=== PATIENT | female | born 1950 | race Caucasian/White ===

== ENCOUNTER → 2024-04-20 | Outpatient (CLI) | payer MEDICARE, OTHER, SELFPAY ==
--- NOTE | 2024-04-20 08:53 | BI_ITS ---
MAMMOGRAPHY - BILATERAL SCREENING REASON FOR EXAM: Female, 73 years old. Routine annual screening examination. PERTINENT HISTORY: Aunt with breast cancer. TECHNIQUE: Digital bilateral breast carter (3D mammographic acquisition) in the CC and MLO projections. 2-D mediolateral oblique (MLO) and craniocaudad (CC) views of both breasts were obtained. CAD: Full Field Digital Mammography with Computer Added Detection was performed. COMPARISON: Comparison is made with prior study April 08, 2017. FINDINGS: Breast Composition: The breasts are extremely dense, which lowers the sensitivity of mammography. There are no dominant masses or suspicious calcifications. No other significant abnormalities are identified. There has been no significant change since the prior study. BI/SCRN MAMM (CAD)W/CARETR BILAT IMPRESSION: Stable bilateral screening mammogram. Yearly follow-up mammogram recommended. (A) ASSESSMENT CATEGORY: BIRADS Category 1: Negative. A letter regarding these results will be sent to the patient by the facility within 30 days. Approximately 10% of breast cancers are not detected by mammography. A normal mammogram should not delay biopsy of a clinically suspicious abnormality. [id number] Electronically Signed: Richard Cabrera MD at 9:30 EDT ,
[2024-04-26 13:01] LABS: HPV Reflexed? NOT INDICATED
== END | disposition home or self-care (01) ==
PROVIDERS: PCP Family Medicine; Referring Provider Advanced Practice Midwife; Visit Provider Advanced Practice Midwife
DX: Z12.31 Encounter for screening mammogram for malignant neoplasm of breast (principal); Z12.4 Encounter for screening for malignant neoplasm of cervix; N95.0 Postmenopausal bleeding
CPT/HCPCS: 77063; 77067; 88175; G0145

== ENCOUNTER → 2024-04-30 | Outpatient (CLI) | payer MEDICARE, OTHER, SELFPAY ==
--- NOTE | 2024-04-30 11:09 | US_ITS ---
HISTORY: PMB. TECHNIQUE: Transvaginal pelvic ultrasound was performed with rios scale and color Doppler evaluation. 47 images. COMPARISON: None. FINDINGS: UTERUS: 5.1 x 3.8 x 2.1 cm. Retroverted. Heterogeneous echotexture with small calcifications. Nabothian cysts in the cervix. ENDOMETRIAL THICKNESS: 3 mm with mild fluid in the endometrial cavity. RIGHT OVARY: 1.5 x 1.7 x 2.5 cm. 1.5 cm simple cyst. LEFT OVARY: Not visualized. FREE FLUID: None. US/Transvaginal Non- IMPRESSION: Mild fluid, likely hemorrhage, in the endometrial cavity without thickening of the endometrial complex. Small right ovarian cyst. Nonvisualization of the left ovary. Electronically Signed: Areli Gama MD at 8:41 EDT ,
--- OUTSIDE RECORDS SUMMARY | 2024-04-30 13:00 | XMS RPT_ITS | CCD ---
Author Organization [facility] Inform ion Partnership [facility] Care Team Providers Care Medical Transcription Radiology Name Role Phone Delmy MESSENGER COPY, Ivana Sloan Unavailable LYDIA Willard RN, NOHEMY Tabares MD Attending HELIO Beth Consulting NOHEMY Larsen MD Admitting NOHEMY Mercer MD Primary Care Unavailshoshana christopher PROVIDER, UNKNOWN Consulting Unavailable PROVIDER, UNKNOWN Consulting Unavailable PROVIDER, UNKNOWN Consulting Unavailable Medications Completed/Discontinued Medications Medication Drug Class(es) Dates Sig (Normalized) Sig (Original) estradiol 0.1 mg/ml vaginal cream (4 sources) Estrogen Start: 04-06-2017 End: 04-11-2017 ESTRACE 0.1 MG/GM CREA use as directed ESTRADIOL [id number] Ivana Brock MESSENGER COPY estrogens, conjugated (jail) 0.625 mg/ml vaginal cream (1 source) Estrogen Start: 04-11-2017 PREMARIN 0.625 MG/GM CREA 1 angel per vagina 2 nights per week X 4 week then small amount at opening 2 nights per week ESTROGENS, CONJUGATED [id number] Ivana Brock MESSENGER COPY lisinopril 20 mg oral tablet (6 sources) Angiotensin Converting Enzyme Inhibitor Start: 03-28-2017 LISINOPRIL 20 MG TABS LISINOPRIL [id number] Ivana Brock MESSENGER COPY metoprolol tartrate 25 mg oral tablet (6 sources) beta-Adrenergic Vivienne Start: 03-28-2017 METOPROLOL TARTRATE 25 MG TABS bid METOPROLOL TARTRATE [id number] Ivana Brock MESSENGER COPY Problems Problem Classification Problem Date Documented Date Episodic/Chronic Menopausal disorders (6 sources) Atrophic vaginitis; Translations: [Postmenopausal atrophic vaginitis] Onset: 03-28-2017 03-28-2017 Chronic Unclassified (3 sources) Cervical smear biopsy taken ; Translations: [Encounter for screening for malignant neoplasm of cervix] Onset: 03-28-2017 03-28-2017 Unclassified (3 sources) Screening mammography ; Translations: [Encounter for screening mammogram for malignant neoplasm of breast] Onset: 03-28-2017 03-28-2017 Unclassified (3 sources) Gynecologic examination ; Translations: [Encounter for gynecological examination (general) (routine) without abnormal findings] Onset: 03-28-2017 03-28-2017 Results Test Name Value Interpretation Reference Range Facility CBC + DIFFon 03-22-2024 Baso # 0.01 x10EE3/UL Normal 0.00 - 0.10 [facility] Comment on above: Performed By: #### 2 [id number] #### [facility],[address] [place] [address] 24432 Basophils/100 WBC (Bld) 0.3 % Normal 0.0 - 2.0 [facility] Comment on above: Performed By: #### 2 52032 #### [facility],[address] [place] [address] CBC + DIFF Normal [facility] Comment on above: Result Comment: CBC- COMPLETE BLOOD COUNT Performed By: #### 2 55916 #### [facility],[address] [place] [address] 78825 EO # 0.16 x10EE3/UL Normal 0.00 - 0.50 [facility] Comment on above: Performed By: #### 2 71620 #### [facility],[address] [place] [address] 15313 Eosinophils/100 WBC (Bld) 3.9 % Normal 0.0 - 7.0 [facility] Comment on above: Performed By: #### 2 41827 #### [facility],[address] [place] [address] 59010 Erythrocyte distribution width (RBC) [Ratio] 13.0 % Normal 12.0 - 15.6 [facility] Comment on above: Performed By: #### 2 40901 #### [facility],[address] [place] [address] Hematocrit (Bld) [Volume fraction] 37.1 % Normal 34.0 - 46.0 [facility] Comment on above: Performed By: #### 2 92425 #### [facility],[address] [place] [address] Hemoglobin (Bld) [Mass/Vol] 12.7 g/dL Normal 12.0 - 16.0 [facility] Comment on above: Performed By: #### 2 63017 #### [facility],[address] [place] [address] Lymph # 1.61 x10EE3/UL Normal 0.80 - 2.80 [facility] Comment on above: Performed By: #### 2 97690 #### [facility],[address] [place] [address] Lymphocytes/100 WBC (Bld) 37.9 % Normal 20.0 - 45.0 [facility] Comment on above: Performed By: #### 2 39087 #### [facility],[address] [place], [place] [id number] MANUAL DIFF N/A Normal [facility] Comment on above: Performed By: #### 2 30690 #### [facility],[address] [place], [place] [address] MCH (RBC) [Entitic mass] 31 pg Normal 27 - 33 [facility] Comment on above: Performed By: #### 2 97290 #### [place] [id number] MCHC 34 X10 3 Normal 32 - 36 [facility] Comment on above: Performed By: #### 2 28168 #### [place] [phone] MCV (RBC) [Entitic vol] 90 fL Normal 80 - 99 [facility] Comment on above: Performed By: #### 2 19143 #### [facility],[address] [place] [address] 41172 Atlantic # 0.33 x10EE3/UL Normal 0.20 - 1.00 [facility] Comment on above: Performed By: #### 2 98891 #### [facility],[address] [place] [address] 92674 MONOS % 7.7 % Normal 0.0 - 10.0 [facility] Comment on above: Performed By: #### 2 80195 #### [facility],[address] [place] [address] Morphology Fuad (Bld) [Interp] N/A Normal [facility] Comment on above: Performed By: #### 2 61646 #### [facility],[address] [place] [address] Neut # 2.13 x10EE3/UL Normal 1.50 - 7.10 [facility] Comment on above: Performed By: #### 2 91441 #### [facility],[address] [place] [address] Neutrophils/100 WBC (Bld) 50.2 % Normal 46.0 - 76.0 [facility] Comment on above: Performed By: #### 2 47144 #### [facility],[address] [place] [address] PLATELET 316 x10EE3/UL Normal 150 - 450 [facility] Comment on above: Performed By: #### 2 49879 #### [facility],[address] [place] [address] Platelet mean volume (Bld) [Entitic vol] 6.9 fL Normal 6.6 - 10.5 [facility] Comment on above: Result Comment: AUTO MATED DIFFERENTIAL Performed By: #### 2 85683 #### [facility],[address],[place] [address] RBC 4.11 x 10EE6/UL Normal 4.10 - 5.30 [facility] Comment on above: Performed By: #### 2 10111 #### [facility],[address] [place] [address] 14669 WBC 4.2 x 10EE3/UL Low 4.5 - 10.8 [facility] Comment on above: Performed By: #### 2 97506 #### [facility],[address] [place] [address] 38431 CMP with eGFRon 03-22-2024 AGE 73 years Normal [facility] Comment on above: Performed By: #### 2 30573 #### [facility],[address] [place] [address] 63992 Albumin [Mass/Vol] 3.6 g/dL Normal 3.4 - 5.0 [facility] Comment on above: Performed By: #### 2 92897 #### [facility],[address] [place] [address] 52282 Albumin/Globulin [Mass ratio] 1.0 {ratio} Normal 0.9 - 1.6 [facility] Comment on above: Performed By: #### 2 33485 #### [facility],[address] [place] [address] 32196 ALK PHOS 69 U/L Normal 46 - 116 [facility] Comment on above: Performed By: #### 2 31106 #### [facility],[address] [place] [address] 27288 ALT [Catalytic activity/Vol] 29 U/L Normal 16 - 63 [facility] Comment on above: Performed By: #### 2 44252 #### [facility],[address] [place] [address] 41074 Anion gap [Moles/Vol] 10 mmol/L Normal 10 - 20 [facility] Comment on above: Performed By: #### 2 50118 #### [facility],[address] [place] [address] 09612 AST [Catalytic activity/Vol] 28 U/L Normal 13 - 39 [facility] Comment on above: Performed By: #### 2 82368 #### [facility],[address] [place] [address] 45685 B/C RATIO 20 ratio Normal 0 - 30 [facility] Comment on above: Performed By: #### 2 40030 #### [facility],[address] [place] [address] 20620 Bilirubin [Mass/Vol] 0.7 mg/dL Normal 0.2 - 1.0 [facility] Comment on above: Performed By: #### 2 94419 #### [facility],[address] [place] [address] 41034 Calcium [Mass/Vol] 9.0 mg/dL Normal 8.5 - 10.1 [facility] Comment on above: Performed By: #### 2 17279 #### [facility],[address] [place] [address] 00451 Chloride [Moles/Vol] 103 mmol/L Normal 98 - 107 [facility] Comment on above: Performed By: #### 2 85061 #### [facility],[address] [place] [address] 52315 CMP with eGFR Normal [facility] Comment on above: Result Comment: COMP REHENSIVE METABOLIC PANEL Performed By: #### 2 18813 #### [facility],[address] [place] [address] 58146 CO2 [Moles/Vol] 30.8 mmol/L Normal 21.0 - 32.0 [facility] Comment on above: Performed By: #### 2 11088 #### [facility],[address] [place] [address] 36100 Creatinine [Mass/Vol] 0.74 mg/dL Normal 0.55 - 1.02 [facility] Comment on above: Performed By: #### 2 37455 #### [facility],[address] [place] [address] 63923 GFR/1.73 sq M.predicted among non-blacks MDRD (S/P/Bld) [Vol rate/Area] mL/min/{1.73_m2} Normal 60 - 999 [facility] Comment on above: Performed By: #### 2 17163 #### [facility],[address] [place], [place] [address] Result Comment: ACCO RDING TO THE NATIONAL KIDNEY DISEASE EDUCATION PROGRAM(NKDE), A NORMAL eGFR IS A VALUE GREATER THAN OR EQUAL TO 60 ML/MIN/1.73 SQ METERS. CHRONIC KIDNEY DISEASE: <60mL/MIN/1.73 SQ METERS KIDNEY FAILURE: <15mL/MIN/1.73 SQ METERS THIS TEST SHOULD ONLY BE USED FOR PATIENTS 18 YEARS OF AGE AND OLDER. Globulin (S) [Mass/Vol] 3.7 g/dL Normal 1.5 - 3.8 [facility] Comment on above: Performed By: #### 2 33060 #### [facility],[address] [place] [address] 17946 Glucose [Mass/Vol] 107 mg/dL High 74 - 106 [facility] Comment on above: Performed By: #### 2 79297 #### [facility],[address] [place] [address] 52965 Potassium [Moles/Vol] 3.5 mmol/L Normal 3.5 - 5.1 [facility] Comment on above: Performed By: #### 2 07993 #### [facility],[address] [place] [address] 38615 Protein [Mass/Vol] 7.3 g/dL Normal 6.4 - 8.2 [facility] Comment on above: Performed By: #### 2 36328 #### [facility],[address] [place] [address] 67206 Sodium [Moles/Vol] 140 mmol/L Normal 136 - 145 [facility] Comment on above: Performed By: #### 2 36617 #### [facility],[address] [place] [address] 18887 Urea nitrogen [Mass/Vol] 15 mg/dL Normal 7 - 18 [facility] Comment on above: Performed By: #### 2 29543 #### [facility],[address] [place] [address] 10189 HEMOGLOBIN A1C (POM)on 03-22 Glucose [Mass/Vol] 134.1 mg/dL High 0.0 - 0.0 [facility] Comment on above: Result Comment: Do HEMOGLOBIN A1C REFERENCE RANGESBLDo Suggested Diagnosis HbA1c(%) HbA1C (mmol/mol Diabetic >/=6.5 >/=48 Prediabetes 5.7 - 6.4 39 - 47 Normal <5.7 <39 Performed By: #### 2 29098 #### [facility],[address] [place] [address] 60160 HbA1c (Bld) [Mass fraction] 6.3 % Normal 0.0 - 6.5 [facility] Comment on above: Performed By: #### 2 22341 #### [facility],[address] [place] [address] 91691 LIPID PROFILEon 03-22-2024 Cholesterol [Mass/Vol] 179 mg/dL Normal 0 - 240 [facility] Comment on above: Performed By: #### 2 54104 #### [facility],[address] [place] [address] 45623 Cholesterol in HDL [Mass/Vol] 82 mg/dL High 40 - 60 [facility] Comment on above: Performed By: #### 2 90599 #### [facility],[address] [place] [address] 12135 Cholesterol in LDL [Mass/Vol] 85 mg/dL Normal 0 - 129 [facility] Comment on above: Performed By: #### 2 67076 #### [facility],[address] [place] [address] 31654 Cholesterol.total/ Cholesterol in HDL [Mass ratio] 2.2 {ratio} Normal 0.0 - 5.0 [facility] Comment on above: Performed By: #### 2 79628 #### [facility],[address] [place] [address] 66566 Lipid 1996 panel Normal [facility] Comment on above: Result Comment: LIPI D PROFILE Performed By: #### 2 55353 #### [facility],[address] [place] [address] 24678 Triglyceride [Mass/Vol] 58 mg/dL Normal 0 - 150 [facility] Comment on above: Performed By: #### 2 91924 #### [facility],[address] [place] [address] 09339 .GFRon 02-20-2021 GFR >60 Normal [facility] ([place]) Comment on above: Result Comment: GFR Population mean for , Non- Americans Ages 20-29 = 116 mL/min/1.73 sq.m. Ages 30-39 = 107 mL/min/1.73 sq.m. Ages 40-49 = 99 mL/min/1.73 sq.m. Ages 50-59 = 93 mL/min/1.73 sq.m. Ages 60-69 = 85 mL/min/1.73 sq.m. Ages 70+ = 75 mL/min/1.73 sq.m. Chronic Kidney Disease: Less than 60 mL/min/1.73 square meters End Stage Renal Disease: Less than 15 mL/min/1.73 square meters Performed By: #### B MP, GFR, LIPID #### [place] [address] GFR Non- 51 ml/min/1.73sqm Normal [facility] ([place]) Comment on above: Result Comment: GFR Population mean for , Non- Americans Ages 20-29 = 116 mL/min/1.73 sq.m. Ages 30-39 = 107 mL/min/1.73 sq.m. Ages 40-49 = 99 mL/min/1.73 sq.m. Ages 50-59 = 93 mL/min/1.73 sq.m. Ages 60-69 = 85 mL/min/1.73 sq.m. Ages 70+ = 75 mL/min/1.73 sq.m. Chronic Kidney Disease: Less than 60 mL/min/1.73 square meters End Stage Renal Disease: Less than 15 mL/min/1.73 square meters Performed By: #### B MP, GFR, LIPID #### [address] [address] BMPon 02-20-2021 BUN/Creatinine Ratio 17.9 ratio Normal 10.0-22.0 [facility] ([place]) Comment on above: Performed By: #### B MP, GFR, LIPID #### [address] [address] Calcium [Mass/Vol] 9.1 mg/dL Normal 8.7-10.4 [facility] ([place]) Comment on above: Result Comment: No te - New Reference Range in effect 20 Performed By: #### B MP, GFR, LIPID #### [address] [address] Chloride [Moles/Vol] 106 mmol/L Normal 98-110 [facility] ([place]) Comment on above: Performed By: #### B MP, GFR, LIPID #### [place] [id number] CO2 [Moles/Vol] 30 mmol/L Normal 22-32 [facility] ([place]) Comment on above: Performed By: #### B MP, GFR, LIPID #### [address] [address] Creatinine [Mass/Vol] 1.06 mg/dL Normal 0.50-1.20 [facility] ([place]) Comment on above: Performed By: #### B MP, GFR, LIPID #### [place] [id number] Electrolyte Balance 4.0 mEq/L Normal 4.0-15.0 [facility] ([place]) Comment on above: Performed By: #### B MP, GFR, LIPID #### [address] [address] Glucose [Mass/Vol] 104 mg/dL Normal 82-115 [facility] ([place]) Comment on above: Performed By: #### B MP, GFR, LIPID #### [address] [address] Potassium [Moles/Vol] 4.4 mmol/L Normal 3.5-5.0 [facility] ([place]) Comment on above: Performed By: #### B MP, GFR, LIPID #### [address] [address] Sodium [Moles/Vol] 140 mmol/L Normal 136-145 [facility] ([place]) Comment on above: Performed By: #### B MP, GFR, LIPID #### [address] [address] Urea nitrogen [Mass/Vol] 19.0 mg/dL Normal 8.0-22.0 [facility] ([place]) Comment on above: Performed By: #### B MP, GFR, LIPID #### [address] [address] LIPIDon 02-20-2021 Cholesterol [Mass/Vol] 171 mg/dL Normal 50-199 [facility] ([place]) Comment on above: Result Comment: Chol esterol Reference Interval: Less than 200 Desirable 200-239 Borderline high risk 240 and above High risk Performed By: #### B MP, GFR, LIPID #### [address] [address] Cholesterol in HDL [Mass/Vol] 65 mg/dL High 40-59 [facility] ([place]) Comment on above: Performed By: #### B MP, GFR, LIPID #### [address] [address] Cholesterol in LDL [Mass/Vol] 91 mg/dL Normal 0-129 [facility] ([place]) Comment on above: Performed By: #### B MP, GFR, LIPID #### [address] [address] Triglyceride [Mass/Vol] 74 mg/dL Normal 3-149 [facility] ([place]) Comment on above: Performed By: #### B MP, GFR, LIPID #### [address] [address] Coronavirus 2019on 0 COVID 19 Source MESSENGER COPY Normal [facility] Comment on above: Result Comment: BEATRICE Busch alled to and read back by: Bryan [facility] 03/23/2020 0627 [place] COVID 19 Result MESSENGER COPY Abnormal Negative for COVID19 (SARS CoV2) by PCR. [facility] Comment on above: Result Comment: Posi tive for If your test results are positive , you have tested positive for the presence of the virus associated with COVID-19. This is a stressful time and if you are a [facility] patient, we will support you by closely monitoring your symptoms and providing supportive resources that can ease your recovery. Our team will call you regularly and have you enter your symptoms in MyChart, so that we can provide the best care possible. This test was developed and its performance characteristics determined by [facility]'s [facility] [place]. This test has been authorized by FDA under an Emergency Use Authorization (EUA). This test has been validated in accordance with the FDA's Guidance Document Policy for Diagnostics Testing in Laboratories Certified to Perform High Complexity Testing under CLIA prior to Emergency use Authorization for Coronavirus Disease 2019 during the Public Health Emergency issued on September 01, 2019. COVID19 (SARS If your test results are positive , you have tested positive for the presence of the virus associated with COVID-19. This is a stressful time and if you are a [facility] patient, we will support you by closely monitoring your symptoms and providing supportive resources that can ease your recovery. Our team will call you regularly and have you enter your symptoms in MyChart, so that we can provide the best care possible. This test was developed and its performance characteristics determined by [facility] [place]. This test has been authorized by FDA under an Emergency Use Authorization (EUA). This test has been validated in accordance with the FDA's Guidance Document Policy for Diagnostics Testing in Laboratories Certified to Perform High Complexity Testing under CLIA prior to Emergency use Authorization for Coronavirus Disease 2019 during the Public Health Emergency issued on September 01, 2019. CoV2) by If your test results are positive , you have tested positive for the presence of the virus associated with COVID-19. This is a stressful time and if you are a [facility] patient, we will support you by closely monitoring your symptoms and providing supportive resources that can ease your recovery. Our team will call you regularly and have you enter your symptoms in MyChart, so that we can provide the best care possible. This test was developed and its performance characteristics determined by [facility] [place]. This test has been authorized by FDA under an Emergency Use Authorization (EUA). This test has been validated in accordance with the FDA's Guidance Document Policy for Diagnostics Testing in Laboratories Certified to Perform High Complexity Testing under CLIA prior to Emergency use Authorization for Coronavirus Disease 2019 during the Public Health Emergency issued on September 01, 2019. PCR.(*) If your test results are positive , you have tested positive for the presence of the virus associated with COVID-19. This is a stressful time and if you are a [facility] patient, we will support you by closely monitoring your symptoms and providing supportive resources that can ease your recovery. Our team will call you regularly and have you enter your symptoms in MyChart, so that we can provide the best care possible. This test was developed and its performance characteristics determined by [facility] [place]. This test has been authorized by FDA under an Emergency Use Authorization (EUA). This test has been validated in accordance with the FDA's Guidance Document Policy for Diagnostics Testing in Laboratories Certified to Perform High Complexity Testing under CLIA prior to Emergency use Authorization for Coronavirus Disease 2019 during the Public Health Emergency issued on September 01, 2019. .GFRon 03-17-2019 GFR >60 Normal [facility] ([place]) Comment on above: Result Comment: GFR Population mean for , Non- Americans Ages 20-29 = 116 mL/min/1.73 sq.m. Ages 30-39 = 107 mL/min/1.73 sq.m. Ages 40-49 = 99 mL/min/1.73 sq.m. Ages 50-59 = 93 mL/min/1.73 sq.m. Ages 60-69 = 85 mL/min/1.73 sq.m. Ages 70+ = 75 mL/min/1.73 sq.m. Chronic Kidney Disease: Less than 60 mL/min/1.73 square meters End Stage Renal Disease: Less than 15 mL/min/1.73 square meters Performed By: #### B MP, GFR #### [address] [address] GFR Non- >60 Normal [facility] ([place]) Comment on above: Result Comment: GFR Population mean for , Non- Americans Ages 20-29 = 116 mL/min/1.73 sq.m. Ages 30-39 = 107 mL/min/1.73 sq.m. Ages 40-49 = 99 mL/min/1.73 sq.m. Ages 50-59 = 93 mL/min/1.73 sq.m. Ages 60-69 = 85 mL/min/1.73 sq.m. Ages 70+ = 75 mL/min/1.73 sq.m. Chronic Kidney Disease: Less than 60 mL/min/1.73 square meters End Stage Renal Disease: Less than 15 mL/min/1.73 square meters Performed By: #### B MP, GFR #### [address] [address] [facility] 03-17-2019 Creatinine [Mass/Vol] 0.62 mg/dL Normal 0.50-1.20 [facility] ([place]) Comment on above: Performed By: #### B MP, GFR #### [address] [address] Glucose [Mass/Vol] 113 mg/dL Normal 82-115 [facility] ([place]) Comment on above: Performed By: #### B MP, GFR #### [address] [address] Urea nitrogen/Creatinin e [Mass ratio] 24.2 ratio High 10.0-22.0 [facility] ([place]) Comment on above: Performed By: #### B MP, GFR #### [address] [address] Calcium [Mass/Vol] 8.7 mg/dL Normal 8.4-10.1 [facility] ([place]) Comment on above: Performed By: #### B MP, GFR #### [address] [address] Chloride [Moles/Vol] 105 mmol/L Normal 98-110 [facility] ([place]) Comment on above: Performed By: #### B MP, GFR #### [address] [address] CO2 [Moles/Vol] 28 mmol/L Normal 22-32 [facility] ([place]) Comment on above: Performed By: #### B MP, GFR #### [address] [address] Electrolyte Balance 8.0 mEq/L Normal 4.0-15.0 [facility] ([place]) Comment on above: Performed By: #### B MP, GFR #### [address] [address] Potassium [Moles/Vol] 3.8 mmol/L Normal 3.5-5.0 [facility] ([place]) Comment on above: Performed By: #### B MP, GFR #### [address] [address] Sodium [Moles/Vol] 141 mmol/L Normal 136-145 [facility] ([place]) Comment on above: Performed By: #### B MP, GFR #### [address] [address] Urea nitrogen [Mass/Vol] 15.0 mg/dL Normal 8.0-22.0 [facility] ([place]) Comment on above: Performed By: #### B MP, GFR #### [address] [address] Replaced Document: (P) PAP I -G w/rfx hrHPVon 04-02-2017 GE use only - for Link[employer] import when terms are not otherwise specified Comment Invalid Interpretation Code . [facility] HPV RFLX Comment Invalid Interpretation Code . [facility] Work Phone: Office Visit: [facility] annualon 0 03-28-2017 Documentation of current medications (procedure) Done Invalid Interpretation Code [facility] Fall risk assessment No Invalid Interpretation Code [facility] Tobacco smoking status NHIS Never Invalid Interpretation Code [facility] Tobacco smoking status NHIS Never smoker Invalid Interpretation Code [facility] Tobacco use CPHS Never smoker Invalid Interpretation Code [facility] Vital Signs Date Time Vital Sign Value Performing Clinician Facility 03-28-2017 10:41-0400 BMI (Body Mass Index) 20.79 kg/m2 Ivana Brock NP [facility] 03-28-2017 10:41-0400 Body Temperature 95.6 [degF] Ivana Brock MESSENGER COPY [facility] 03-28-2017 10:41-0400 Body Temperature 95.59 [degF] Ivana Brock MESSENGER COPY [facility] 03-28-2017 10:41-0400 BP Diastolic 80 mm[Hg] Ivana Brock NP [facility] men[facility] 03-28-2017 10:41-0400 BP Systolic 152 mm[Hg] Ivana Brock MESSENGER COPY [facility] mens [facility] 03-28-2017 10:41-0400 Height 167.64 cm Ivana Brock NP [facility] 03-28-2017 10:41-0400 Pulse (Heart Rate) 60 /min Ivana Brock NP [facility] 03-28-2017 10:41-0400 Respiratory Rate 16 /min Ivana Brock NP [facility] 03-28-2017 10:41-0400 Weight 58.42 kg Ivana Brock NP [facility] Encounters Encounter Date Encounter Type Care Provider Facility Start: 03-22-2024 End: 03-22-2024 ambulatory NOHEMY BELL [facility] Procedures Date Procedure Procedure Detail Performing Clinician Start: 03-28-2017 Cervical smear biopsy taken Pap smear Ivana Brock NP Start: 03-28-2017 Gynecologic examination Routine gynecological examination Ivana Brock NP Start: 03-28-2017 Screening mammography Mammogram yearly screening Ivana Brock NP Start: 03-28-2017 End: 03-28-2017 Documentation of current medications Ivana Brock NP Plan of Treatment Date Care Activity Detail Author Start: 03-28-2017 End: 03-28-2017 Mammogram, screening Mammogram, Screening, both breasts [facility] Work Phone: Start: 03-28-2017 End: 03-28-2017 Appointment Appointment [facility] Start: 03-28-2017 End: 03-28-2017 Mammogram, screening Mammogram, Screening, both breasts [facility] Payers Date Payer Category Payer Unknown [id number] Medicare [id number] Unknown Summary Purpose Family History No Family History Records FoundNo Family History Records FoundNo Family History Records FoundNo Family History Records Found Advance Directives No Advanced Directives Records FoundNo Advanced Directives Records FoundNo Advanced Directives Records FoundNo Advanced Directives Records Found Additional Source Comments INFORMATION SOURCE (unrecogn ized section and content) DATE CREATED AUTHOR 03/21/[address] [facility] ([place]) DATE CREATED AUTHOR AUTHOR'S ORGANIZ ATION 03/23/2020 [facility] DATE CREATED AUTHOR AUTHOR'S ORGANIZ ATION 03/06/[address] [facility] ([place]) DATE CREATED AUTHOR AUTHOR'S ORGANIZ ATION 03/24/2024 [facility] FOR RECORDS PERTAINING TO PATIENTS WHO ARE OR HAVE BEEN ENROLLED IN A CHEMICAL DEPENDENCY/SUBSTANCEABUSE PROGRAM, SOME INFORMATION MAY BE OMITTED. This clinical summary was aggregated from multiple sources. Caution should be exercised in using it in the provision of clinical care. This summary normalizes information from multiple sources, and as a consequence, information in this document may materially change the coding, format and clinical context of patient data. In addition, data may be omitted in some cases. CLINICAL DECISIONS SHOULD BE BASED ON THE PRIMARY CLINICAL RECORDS. [employer] [facility]. provides no warranty or guarantee of the accuracy or completeness of information in this document.
--- NOTE | 2024-04-30 15:30 | EMB_PTH ---
PATHOLOGY RESULTS PATIENT: LILY ADAMES LOC: U#:[id number] AGE/SX: 73/F ROOM: RE04/30/[address]: Casie Reynoso CNM : 1950 BED: DIS: 04/30/2024 SPEC #: [id number] RECD: 04/30/24 17:11 STATUS: MICA REFlaca #: [id number] SONIYA: 04/30/24 15:[address]: Casie Reynoso DEPT: SURGICAL PATHOLOGY RECD BY: Addie Morris ENTERED: 05/01/24 09:59 SP TYPE: ENDOM BX/C SANJIV DR: Dr. Chepe Hernández MD Tissues: Endometrium, NOS Procedures: Surgery Specimen Level IV HEADER OPERATION: Endometrial biopsy PRE-OP DIAGNOSIS: Post menopausal bleeding TISSUE SUBMITTED: Endometrial tissue MICROSCOPIC DIAGNOSIS Endometrial biopsy: Fragments of benign endometrial epithelium, consistent with atrophic endometrium. Fragments of benign ectocervical and endocervical epithelium. SJ.mr 05/02/2024 MICROSCOPIC DESCRIPTION Slides are reviewed. GROSS DESCRIPTION Received is one container labeled with the patient's name and not further designated. The specimen consists of a scant amount of soft tissue. The specimen is totally submitted for cell block preparation. 05/01/2024 TC:4 CPT:47099
== END | disposition home or self-care (01) ==
LOC: US 11:07
PROVIDERS: PCP Family Medicine; Referring Provider Advanced Practice Midwife; Visit Provider Advanced Practice Midwife
DX: N95.0 Postmenopausal bleeding (principal)
CPT/HCPCS: 76830; 88305